=== PATIENT | female | born 1965 | race Caucasian/White ===

== ENCOUNTER 2017-05-24 00:44 | Emergency (ER) | payer BC, MEDICAID ==
[~2017-05-24] VITALS: Ht 157.5 cm; Wt 90.7 kg
[2017-05-24 01:08] VITALS: BP 147/77
== END 2017-05-24 01:13 | disposition left against medical advice (07) ==
LOC: EDBD 00:44 → ER 00:44
DX: M54.9 Dorsalgia, unspecified (principal); Z53.21 Procedure and treatment not carried out due to patient leaving prior to being seen by health care provider

== ENCOUNTER 2024-07-03 02:55 | Emergency (ER) | payer MEDICAID, OTHER ==
[~2024-07-03] VITALS: Ht 157.5 cm; Wt 120.0 kg
[2024-07-03 03:52] VITALS: BP 143/77; PULSE 72; RESP 16; TEMP 98.5; O2SAT 95
[2024-07-03] MEDS: ONDANSETRON ODT 4 MG TAB PO ONE (04:01)
[2024-07-03 04:02] LABS: Basophils # (auto) 0.1 10 ^3/uL (0-0.2); Basophils % (auto) 0.9 % (0.0-2.0); Eosinophils # (auto) 0.2 10 ^3/uL (0-0.8); Eosinophils % (auto) 1.9 % (0.0-7.0); Hematocrit 44.2 % (36.0-46.0); Hemoglobin 15.5 g/dL (12.2-16.2); Lymphocytes # (auto) 2.8 10 ^3/uL (0.4-5.4); Lymphocytes % (auto) 26.7 % (10.0-50.0); Mean Corpuscular Hemoglobin 31.6 pg (28.0-32.0); Mean Corpuscular Volume 90.3 fL (80.0-100.0); Monocytes # (auto) 1.2 10 ^3/uL (0-1.3); Monocytes % (auto) 11.5 % (0.0-12.0); Neutrophils # (auto) 6.3 10 ^3/uL (1.6-8.6); Nucleated Red Blood Cells % 0.1 %; Red Cell Distribution Width 13.4 % (11.8-14.3); White Blood Cell 10.6 10^3/uL (4.4-10.8)
[2024-07-03] MEDS: METOPROLOL TARTRATE 25 MG TAB PO ONE (04:02)
[2024-07-03 04:22] LABS: Albumin 4.5 g/dL (3.2-4.8); Alkaline Phosphatase 89 U/L (46-116); Anion Gap 8 (5-15); Aspartate Aminotransferase 23 U/L (13-40); BUN/Creatinine Ratio 11.4 (10.0-20.0); Blood Urea Nitrogen 8 mg/dL (9-23); Calcium 9.3 mg/dL (8.7-10.4); Carbon Dioxide 23 mmol/L (20-30); Chloride 110 mmol/L (98-107); Glucose 119 mg/dL (74-106); Potassium 3.7 mmol/L (3.5-5.1); Sodium 141 mmol/L (136-145)
[2024-07-03 04:23] LABS: Bilirubin, Total 0.7 mg/dL (0.2-1.0); Total Protein 7.6 g/dL (5.7-8.2)
[2024-07-03 04:32] LABS: Alanine Aminotransferase 23 U/L (7-40)
== END 2024-07-03 05:53 | disposition left against medical advice (07) ==
LOC: EDBD 02:55 → ER 02:55
DX: R10.84 Generalized abdominal pain (principal); I10 Essential (primary) hypertension
CPT/HCPCS: 36415; 80053; 85025; 93005; 99284; Q0162

== ENCOUNTER 2024-07-11 22:25 | Emergency (ER) | payer OTHER ==
[~2024-07-11] VITALS: Ht 165.1 cm; Wt 110.0 kg
[2024-07-11 23:06] LABS: Basophils # (auto) 0.1 10 ^3/uL (0-0.2); Basophils % (auto) 0.6 % (0.0-2.0); Eosinophils # (auto) 0.3 10 ^3/uL (0-0.8); Eosinophils % (auto) 2.8 % (0.0-7.0); Hemoglobin 13.3 g/dL (12.2-16.2); Lymphocytes # (auto) 2.4 10 ^3/uL (0.4-5.4); Lymphocytes % (auto) 25.4 % (10.0-50.0); Mean Corpuscular Hemoglobin 31.3 pg (28.0-32.0); Mean Corpuscular Hgb Conc. 34.1 g/dL (32.0-36.0); Mean Corpuscular Volume 91.7 fL (80.0-100.0); Monocytes # (auto) 0.8 10 ^3/uL (0-1.3); Monocytes % (auto) 8.6 % (0.0-12.0); Neutrophils # (auto) 5.9 10 ^3/uL (1.6-8.6); Neutrophils % (auto) 62.6 % (37.0-80.0); Red Blood Cells 4.25 10^6/uL (4.0-5.20); Red Cell Distribution Width 13.7 % (11.8-14.3); White Blood Cell 9.5 10^3/uL (4.4-10.8)
[2024-07-11 23:17] LABS: Alanine Aminotransferase 19 U/L (7-40); Alkaline Phosphatase 108 U/L (46-116); Anion Gap 9 (5-15); Aspartate Aminotransferase 20 U/L (13-40); BUN/Creatinine Ratio 7.8 (10.0-20.0); Blood Urea Nitrogen 7 mg/dL (9-23); Calcium 8.7 mg/dL (8.7-10.4); Carbon Dioxide 25 mmol/L (20-30); Chloride 106 mmol/L (98-107); Glucose 154 mg/dL (74-106); Potassium 4.2 mmol/L (3.5-5.1); Sodium 140 mmol/L (136-145)
[2024-07-11 23:18] LABS: Bilirubin, Total 0.2 mg/dL (0.2-1.0); Total Protein 6.5 g/dL (5.7-8.2)
[2024-07-12] MEDS: ACETAMINOPHEN 325 MG TAB PO ONE (01:07)
[2024-07-12] MEDS: LORazepam 0.5 MG TAB PO ONE (01:07)
[2024-07-12 01:10] VITALS: BP 114/51; TEMP 98.7
[2024-07-12 01:16] VITALS: PULSE 80; RESP 18; O2SAT 99
== END 2024-07-12 01:13 | disposition home or self-care (01) ==
LOC: EDUNIT# 22:25 → ER 22:25 → EDBD 22:25 → ER 07-12 01:13
DX: R07.89 Other chest pain (principal); F41.9 Anxiety disorder, unspecified
CPT/HCPCS: 36415; 71045; 80053; 83880; 84484; 85025; 93005

== ENCOUNTER 2025-07-18 02:44 | Emergency (ER) | payer SELFPAY ==
[~2025-07-18] VITALS: Ht 175.3 cm; Wt 90.7 kg
[2025-07-18 02:53] VITALS: BP 140/86; PULSE 76; RESP 18; TEMP 98.6; O2SAT 96
--- NOTE | 2025-07-18 03:01 | ED.PDOC ---
History of Present Illness HPI Comments 60-year-old female who came to ER via EMS for high blood pressure. Per EMS, patient was picked up at a motel. Patient does have history of hypertension, diabetes, anxiety, schizophrenia, and bipolar disorder. Patient claims that she needs medication refill, that her medications are not working. Claims her blood pressure was high. Upon arrival blood pressure was 140/82 mm Hg. Chief Complaint: High Blood Pressure Time Seen by MD: 03:01 Primary Care Provider: CLEO Valera Notes: Nurses Notes Allergies: Coded Allergies: NO KNOWN ALLERGIES (Unverified , 07/14/14) Home Meds Active Scripts Divalproex Sodium (Depakote Er) 500 Mg Tab, 1 TAB PO BID for 90 Days, #180 TAB 3 Refills Prov:PAULO BA MD 07/18/25 Metoprolol Tartrate (Metoprolol Tartrate) 25 Mg Tab, 1 TAB PO BID for 90 Days, #180 TAB 3 Refills Prov:PAULO BA MD 07/18/25 Albuterol Sulfate (Albuterol Sulfate Hfa) 108 Mcg/Act Aer, 108 MCG IN Q6HP PRN, #1 AER 3 Refills Prov:PAULO BA MD 07/18/25 Information Source: Patient Mode of Arrival: EMS Severity: Moderate Timing: Hours Duration: Since onset Prehospital treatment: None Past Medical History PAST MEDICAL HISTORY: Anxiety, HTN, Schizophrenia Past Medical History (Other): Bipolar disorder Surgical History: Denies all surgeries RADIAGRAPH OPERATOR History: No Pertinent RADIAGRAPH OPERATOR History Family History Family History: Reviewed,noncontributory to illness, No family hx of Cancer, No family hx of DM, No family hx of Heart loli, No family hx of HTN, No family hx ofKidney loli, No family hx of Liver loli, No family hx of Lung loli, No family hx of Stroke Social History Smoker: Non-Smoker Alcohol: Denies ETOH Use Drugs: Denies Drug Use Lives In: Other (Hotel ) Constitutional: denies: chills, diaphoresis, fatigue, fever, malaise, sweats, weakness, others EENTM: denies: blurred vision, double vision, ear bleeding, ear discharge, ear drainage, ear pain, ear ringing, eye pain, eye redness, hearing loss, mouth pain, mouth swelling, nasal discharge, nose bleeding, nose congestion, nose pain, photophobia, tearing, throat pain, throat swelling, voice changes, others Respiratory: denies: cough, hemoptysis, orthopnea, SOB at rest, shortness of breath, SOB with excertion, stridor, wheezing, others Cardiovascular: denies: chest pain, dizzy spells, diaphoresis, Dyspnea on exertion, edema, irregular heart beat, left arm pain, lightheadedness, palpitations, PND, syncope, others Gastrointestinal: denies: abdomen distended, abdominal pain, blood streaked bowels, constipated, diarrhea, dysphagia, difficulty swallowing, hematemesis, melena, nausea, poor appetite, poor fluid intake, rectal bleeding, rectal pain, vomiting, others Genitourinary: denies: abnormal vagina bleeding, burning, dyspareunia, dysuria, flank pain, frequency, hematuria, incontinence, pain, , vagina discharge, urgency, others Neurological: denies: dizziness, fainting, headache, left sided numbness, left sided weakness, numbness, paresthesia, pre-existing deficit, right sided numbness, right sided weakness, seizure, speech problems, tingling, tremors, weakness, others Musculoskeletal: denies: back pain, gout, joint pain, joint swelling, muscle pain, muscle stiffness, neck pain, others Integumetry: denies: bruises, change in color, change in hair/nails, dryness, laceration, lesions, lumps, rash, wounds, others Allergic/Immunocompromised: denies: Difficulty Healing, Frequent Infections, Hives, Itching, others Hematologic/Lymphatic: denies: anemia, blood clots, easy bleeding, easy bruising, swollen glands, others Endocrine: denies: excessive hunger, excessive sweating, excessive thirst, excessive urination, flushing, intolerance to cold, intolerance to heat, unexplained weight gain, unexplained weight loss, others Psychiatric: reports: bipolar disorder, schizophrenia; denies: anxiety, depression, hopeless, panic disorder, sleepless, suicidal, others Physical Exam General Appearance: No Apparent Distress, Normal HEENT: Normal ENT Inspection, Pharynx Normal, TMs Normal Neck: Full Range of Motion, Non-Tender, Normal, Normal Inspection Respiratory: Chest Non-Tender, Lungs Clear, No Accessory Muscle Use, No Respiratory Distress, Normal Breath Sounds Cardiovascular: No Edema, No JVD, No Murmur, No Gallop, Normal Peripheral Pulses, Regular Rate/Rhythm Breast Exam: Deferred Gastrointestinal: No Organomegaly, Non Tender, No Pulsatile Mass, Normal Bowel Sounds, Soft Genitalia: Deferred Pelvic: Deferred Rectal: Deferred Extremities: No calf tenderness, Normal capillary refill, Normal inspection, Normal range of motion, Non-tender, No pedal edema Musculoskeletal : Apperance: Normal Neurologic: Alert, bicycle mechanic II-XII nml as Tested, No Motor Deficits, Normal Affect, Normal Mood, No Sensory Deficits Cerebellar Function: Normal Reflexes: Normal Skin: Dry, Normal Color, Warm Lymphatic: No Adenopathy Was a procedure done? Was a procedure done?: No Differential Dx Considerations may include: Hypertension, medication compliance, schizophrenia, bipolar disorder X-Ray, Labs, Meds, VS Vital Signs Date Time Temp Pulse Resp B/P (MAP) Pulse Ox O2 Delivery O2 Flow Rate FiO2 07/18/25 02:53 98.6 76 18 140/86 96 98.6 Time of 1ST Reevaluation: 02:58 Reevaluation 1ST: Unchanged Patient Education/Counseling: Diagnosis, Treatment Family Education/Counseling: No Family Present SEPSIS Sepsis Screen Physician Orders Vital Signs .PER UNIT PROTOCOL (07/18/25 03:01) Vital Signs Date Time Temp Pulse Resp B/P (MAP) Pulse Ox O2 Delivery O2 Flow Rate FiO2 07/18/25 02:53 98.6 76 18 140/86 96 98.6 Departure 1 Departure Time of Disposition: 03:30 Impression: Primary Impression: Schizophrenia Additional Impression: Hypertension Disposition: 01 HOME / SELF CARE / HOMELESS Condition: Stable e-Prescriptions Divalproex Sodium (Depakote Er) 500 Mg Tab 1 TAB PO BID for 90 Days, #180 TAB 3 Refills Prov: PAULO BA MD 07/18/25 Metoprolol Tartrate (Metoprolol Tartrate) 25 Mg Tab 1 TAB PO BID for 90 Days, #180 TAB 3 Refills Prov: PAULO BA MD 07/18/25 Albuterol Sulfate (Albuterol Sulfate Hfa) 108 Mcg/Act Aer 108 MCG IN Q6HP PRN, #1 AER 3 Refills Prov: PAULO BA MD 07/18/25 Discharged With: Self Critical Care Note Critical Care Time?: No Stability Stability form required: No Heart Score Heart Score: Heart Score Response (Comments) Value History N/A 0 EKG N/A 0 Age N/A 0 Risk Factors N/A 0 Troponin N/A 0 Total 0 I personally scribed for PAULO BA MD ([email or web address]) on 07/18/25 at 03:01. Electronically submitted by Edilson Mane ([email or web address]). PAULO BA MD Jul 18, 2025 03:01
[2025-07-18] MEDS ORDERED: ALBU108A5 IN (03:06)
[2025-07-18] MEDS ORDERED: METO25TA5 PO (03:06)
[2025-07-18] MEDS ORDERED: DIVA-93 PO (03:06)
== END 2025-07-18 07:14 | disposition home or self-care (01) ==
LOC: ER 02:44 → EDBD 02:44 → ER 07:14
DX: I10 Essential (primary) hypertension (principal); F20.9 Schizophrenia, unspecified; E11.9 Type 2 diabetes mellitus without complications; F31.9 Bipolar disorder, unspecified; F41.9 Anxiety disorder, unspecified; Z79.899 Other long term (current) drug therapy